=== PATIENT | male | born 1985 | race Caucasian/White ===

== ENCOUNTER → 2020-10-01 12:15 | Outpatient (CLI) | payer BC, SELFPAY ==
--- NOTE | 2020-10-01 12:23 | US_ITS ---
APPROVED REPORT Exam Type: Lower Extremity Segmental Pressures Audio Video Repairer: Lesia Zheng RVT Indications Claudication: Right Rest Pain: Right Current Smoker RT CALF PAIN X SEVERAL DAYS,VENOUS WAS NEG. AT CB, DECREASED PULSES ON THE RIGHT ON PHYSICAL EXAM Risk Factors Hypertension Current Smoker Pressures/Indices Right Indices Left Indices Brachial 171.00 mmHg Brachial 184.00 mmHg Low Thigh 190.00 mmHg 1.03 Low Thigh 187.00 mmHg 1.02 Calf 199.00 mmHg 1.08 Calf 206.00 mmHg 1.12 Ankle(PT) 213.00 mmHg 1.16 Ankle(PT) 219.00 mmHg 1.19 Ankle(DP) 210.00 mmHg 1.14 Ankle(DP) 190.00 mmHg 1.03 Digit 200.00 mmHg 1.09 Digit 167.00 mmHg 0.91 Findings RT CLAUDIA:1.16 LT CLAUDIA:1.19 RT TBI:1.09 LT TBI:0.91 NORMAL PULSES BILATERAL NORMAL WAVEFORMS BILATERAL Conclusion RT CLAUDIA:1.16 LT CLAUDIA:1.19 RT TBI:1.09 LT TBI:0.91 NORMAL PULSES BILATERAL NORMAL WAVEFORMS BILATERAL Normal appearing resting noninvasive lower extremity arterial study. Critical Notification Physician Notified Date: 10/01/2020 Time: 12:51 Physician Name: fred MANZANO Electronically signed by : Jonathan Gamble MD 10/01/2020 15:45:26
== END ==
PROVIDERS: PCP Physician Assistant; Visit Provider Physician Assistant
DX: M79.661 Pain in right lower leg (principal)
CPT/HCPCS: 93923

== ENCOUNTER → 2022-12-03 10:45 | Outpatient (CLI) | payer BC, SELFPAY ==
[2022-12-03 18:18] LABS: Alanine Aminotransferase 23 U/L (12-78); Albumin Level 4.1 g/dl (3.5-5.0); Albumin/Globulin Ratio 1.4 (1.1-1.8); Alkaline Phosphatase 85 U/L (38-126); Anion Gap 11.9 mEq/L (5-15); Aspartate Amino Transferase 28 U/L (17-59); Bilirubin,Total 0.4 mg/dl (0.2-1.3); Blood Urea Nitrogen 19 mg/dl (9-20); Calcium 8.5 mg/dl (8.4-10.2); Carbon Dioxide 28 mmol/L (22.0-30.0); Chloride 98 mmol/L (98-107); Chol/HDL Ratio 7.3 (1-3.5); Cholesterol 183 mg/dl (140-200); Estimated Glomerular Filt Rate 94 ml/min (>60); GFR (African American) 114 ML/MIN (>60); Glucose 99 mg/dl (74-100); HDL Cholesterol 25 mg/dl (40-60); Potassium 3.9 mmoL/L (3.5-5.1); Sodium 134 mmol/L (136-145); Total Protein,Serum 7.1 g/dl (6.3-8.2); Triglycerides 167 mg/dl (30-150); VLDL Cholesterol 33 mg/dL (0-40)
[2022-12-03 18:28] LABS: Direct LDL Cholesterol 127.97 mg/dL (100-129)
[2022-12-03 18:34] LABS: 25-OH Vitamin D, Total 22.5 ng/mL (30-100)
[2022-12-03 18:45] LABS: Basophils # 0.1 K/mm3 (0-0.2); Eosinophils # 0.1 K/mm3 (0.0-0.4); Eosinophils % 1.1 % (0.1-12.0); Hematocrit 43.3 % (42.0-52.0); Hemoglobin 14.4 g/dL (14.1-18.0); Lymphocytes # 2.6 K/mm3 (0.7-4.5); Mean Corpuscular HGB Conc 33.1 g/dL (31.8-35.4); Mean Corpuscular Volume 81.6 fl (80-94); Mean Platelet Volume 9.5 fl (7.4-10.4); Monocytes # 0.7 K/mm3 (0.1-1.0); Monocytes % 6.9 % (1.7-9.3); Neutrophils # 6.3 K/mm3 (1.8-7.8); Platelet Count 402 K/mm3 (142-424); Red Blood Count 5.31 M/mm3 (4.60-6.20); Red Cell Distribution Width 13.8 % (11.5-17.5); White Blood Count 9.8 K/mm3 (4.8-10.8)
[2022-12-03 18:48] LABS: Thyroid Stimulating Hormone 1.11 uIU/mL (0.465-4.68)
--- NOTE | 2023-05-12 09:10 | PC.NURSE ---
Have left patient voicemails reguarding a HST with no return phone calls.
== END ==
PROVIDERS: PCP Nurse Practitioner Family; Visit Provider Nurse Practitioner Family
DX: I10 Essential (primary) hypertension (principal); R53.83 Other fatigue; E55.9 Vitamin D deficiency, unspecified
CPT/HCPCS: 80053; 80061; 82306; 84443; 85025